=== PATIENT | male | born 1960 | race Caucasian/White ===

== ENCOUNTER → 2017-02-28 | Outpatient (CLI) | payer OTHER ==
[~2017-02-28] MED LIST: ALL180 PO; ASPEC81 PO; CNT PO; DOCU-94 PO; EZET10TA63 PO; HYZ/10015 PO; SIMV40TA2 PO
[2017-02-28 10:39] LABS: BASO % 0.4 %; BASO ABS # 0.02 K/uL (0-0.2); COMPLETE YES; EOS % 2.1 %; HEMATOCRIT 44.6 % (42-52); IG% 0.2 %; LYMPH % 28.3 %; LYMPH ABS # 1.51 K/uL (1.2-3.4); MEAN CELL VOLUME 89.7 fL (80-100); MEAN CORPUSCULAR HEMOGLOBIN 31.8 pg (25-34); MEAN CORPUSCULAR HGB CONC 35.4 g/dl (32-36); MEAN PLATELET VOLUME 9.5 fL (7.4-10.4); MONO % 6.2 %; NEUT % 62.8 %; PLATELET COUNT 235 K/uL (130-400); RED BLOOD COUNT 4.97 M/uL (4.7-6.1); WHITE BLOOD COUNT 5.34 K/uL (4.8-10.8)
[2017-02-28 10:59] LABS: ESTIMATED AVERAGE GLUCOSE 108 mg/dl; HA1C FLAG Normal (Normal)
[2017-02-28 11:11] LABS: CALCIUM 9.7 mg/dl (8.5-10.1)
[2017-02-28 11:19] LABS: ALT/SGPT 60 U/L (12-78); AST/SGOT 24 U/L (15-37); BLOOD UREA NITROGEN 23 mg/dl (7-18); BUN/CREATININE RATIO 24.6 (10-20); CARBON DIOXIDE 24 mmol/L (21-32); CHLORIDE 106 mmol/L (98-107); CHOLESTEROL 235 mg/dl (0-200); CHOLESTEROL/HDL RATIO 3.5; CREATININE 0.93 mg/dl (0.60-1.40); GLUCOSE 110 mg/dl (70-99); HDL CHOLESTEROL 67 mg/dl; LDL CHOLESTEROL CALCULATED 151 mg/dl; POTASSIUM 3.3 mmol/L (3.5-5.1); SODIUM 142 mmol/L (136-145); TRIGLYCERIDES 85 mg/dl (0-150); VERY LOW DENSITY LIPOPROT CALC 17 mg/dl
== END | disposition home or self-care (01) ==
LOC: C.LAB1850 09:45
PROVIDERS: ATTEND Internal Medicine
DX: E78.00 Pure hypercholesterolemia, unspecified (principal)

== ENCOUNTER 2023-07-14 08:07 | Observation (INO) ==
--- NOTE | 2023-07-13 12:18 | Anesthesiology Consultation ---
Date of Service July 13, 2023 Assessment & Plan (1) Encounter for pre-operative examination: Chart Review Chart Review: Acceptable Risk for Surgery (pending anesthesiologist review of unconfirmed EKG DOS ) and Patient NOT seen in Pre Admission Testing - Unconfirmed EKG will need reviewed by anesthesiologist DOS -Infectious Disease screening: Per PAT nursing assessment on 07/13/23. Intermittent cough x 3 days- occ productive. Occ post nasal drip- has chronic history allergic rhinitis this time of year. No fever/chills/SOB. No known infectious disease contacts in past 10 days. No recent travel outside the country. Discussed with Dr. Holland- will evaluate patient DOS. Preop Covid test not needed at this time History Surgery Operation Date: 07/14/23 09:40 Proposed Procedures p Open Umbilical Hernia Repair, Possible Mesh - Florencio Callejas MD, FACS Height/Weight Height: 5 ft 10 in Weight: 112.491 kg Allergies Allergy/AdvReac Type Severity Reaction Status Date / Time bee pollen Allergy Intermediate Hives Verified 07/13/23 13:33 No Known Drug Allergies Allergy Verified 07/13/23 13:33 Medications Home Medications Medication Instructions Recorded Confirmed Last Taken aspirin 81 mg tablet 81 mg PO HS 05/30/19 07/13/23 Unknown fexofenadine 180 mg tablet 180 mg PO QAM #90 tabs 05/30/19 07/13/23 Unknown multivit,Ca,min-iron 8 mg-folic 1 tab PO QAM 07/05/19 07/13/23 Unknown acid 200 mcg-lycopene 600 mcg tablet (Centrum Men) levothyroxine 25 mcg tablet 25 mcg PO QAM 07/13/23 07/13/23 Unknown losartan 100 1 tab PO QAM 07/13/23 07/13/23 Unknown mg-hydrochlorothiazide 25 mg tablet rosuvastatin 40 mg tablet (Crestor) 40 mg PO QPM 07/13/23 07/13/23 Unknown Past Medical History Medical History (Updated 07/13/23 @ 15:31 by Jaylene Burton PA-C) BPH (benign prostatic hyperplasia) Dyslipidemia High prostate specific antigen (PSA) History- follows with Dr. Valdovinos, - last seen 07/13/23- no issues, f/u one year PSA WNL 07/06/23 HTN (hypertension) Hypothyroidism Umbilical hernia Past Family History Family History Mother Breast cancer Hypertension Grandfather (Maternal) Myocardial infarction Grandfather (Paternal) Myocardial infarction Father Heart disease Myocardial infarction Cancer Hypertension Grandmother (Maternal) Ovarian cancer Grandmother (Paternal) Ovarian cancer Grandfather Heart disease Hypertension Other No family history of adverse response to anesthesia Denies family history of Prostate cancer Colonic polyp Past Surgical History Surgical History H/O lateral meniscus repair of left knee H/O wrist surgery ORIF right--hardware in place History of esophagogastroduodenoscopy (EGD) Social History Smoking Status: Never smoker Do You Dip or Chew Tobacco: Yes (advised by nursing on policy) Hx Alcohol Use: Yes Alcohol type: beer alcohol intake frequency: 0-2 drinks per day Hx Substance Use: No substance use type: does not use Lab Results Anesthesia Preop Results Results Anesthesia Widget: WBC 6.32 K/ul (4.8-10.8) 07/13/23 Hgb 17.0 g/dl (14.0-18.0) 07/13/23 Hct 47.7 % (42.0-52.0) 07/13/23 Plt 227 K/uL (130-400) 07/13/23 Na 136 mmol/L (136-145) 07/13/23 K 3.5 mmol/L (3.5-5.1) 07/13/23 Cl 102 mmol/L (98-107) 07/13/23 CO2 25 mmol/L (21-32) 07/13/23 BUN 23 mg/dl (6-23) 07/13/23 Creat 0.82 mg/dl (0.6-1.4) 07/13/23 Glucose Level 97 mg/dl (70-99(Fasting)) 07/13/23 Testing Electrocardiogram Date: 07/13/23 Findings: + NSR @ (81bpm) unconfirmed
[~2023-07-14 08:07] MED LIST changes: -ALL180 PO; -ASPEC81 PO; -CNT PO; -DOCU-94 PO; -EZET10TA63 PO; -HYZ/10015 PO; +LR 15ML/HR IV SCH; -SIMV40TA2 PO
[2023-07-14] MEDS ORDERED: ONDANSETRON INJ 2 MG/ML 2 ML VIAL IV PRN ×2 (09:22→11:19)
[2023-07-14] MEDS ORDERED: ATROPINE SULFATE 0.1 MG/ML 10ML SYR IV PRN (09:22)
[2023-07-14] MEDS ORDERED: ePHEDrine sulfate 50 MG/ML AMP IV PRN (09:22)
[2023-07-14] MEDS ORDERED: PROPOFOL IV EMULSION 10 MG/ML 20 ML VIAL IV ONE ×2 (09:40→10:18)
[2023-07-14] MEDS ORDERED: LIDOCAINE 2% 2 ML VIAL/AMP(20MG/ML) INFIL ONE (09:40)
[2023-07-14] MEDS ORDERED: MIDAZOLAM HCL 1 MG/ML 2ML VIAL ONE (09:49)
[2023-07-14] MEDS ORDERED: fentaNYL citrate PF 100 MCG/2 ML VIAL ONE ×3 (09:49→11:16)
--- NOTE | 2023-07-14 09:58 | History & Physical Bridge Note ---
Date of Service July 14, 2023 History & Physical Bridge Note I have examined the patient, reviewed the History & Physical and in the interval since the performance of the History & Physical I have noted the following changes of clinical significance: no changes noted pt marked all question answered
[2023-07-14] MEDS ORDERED: BUPIVACAINE/EPINEPHRINE 0.5% MPF 1:200,000 30 ML VIAL ONE (10:03)
[2023-07-14] MEDS ORDERED: ceFAZolin 330 MG/ML 1 GM VIAL ONE (10:15)
[2023-07-14] MEDS ORDERED: ONDANSETRON INJ 2 MG/ML 2 ML VIAL ONE (10:21)
[2023-07-14] MEDS ORDERED: DEXAMETHASONE SOD INJ 4 MG/ML VIAL ONE (10:21)
[2023-07-14] MEDS ORDERED: HYDROmorphone INJ 1 MG/ML SYRINGE ONE (10:27)
[2023-07-14] MEDS ORDERED: ceFAZolin 2000MG 2,000 MG/15 ML SYR IV ONE (11:08)
[2023-07-14] MEDS ORDERED: KETAMINE 50 MG/5 ML SYRINGE ONE (11:15)
[2023-07-14] MEDS ORDERED: MoRPHine SULFATE 4 MG/ML 1 ML CARP\\VIAL IV PRN (11:19)
[2023-07-14] MEDS ORDERED: ACETAMINOPHEN 325 MG TAB PO PRN (11:19)
[2023-07-14] MEDS ORDERED: MoRPHine SULFATE 2 MG/ML CARP IV PRN (11:19)
[2023-07-14] MEDS ORDERED: oxyCODONE/ACETAMINOPHEN 5mg/325mg TAB PO PRN ×2 (11:19)
[2023-07-14] MEDS ORDERED: SODIUM CHLORIDE 0.9% 1,000 ML IV SCH (11:30)
--- NOTE | 2023-07-14 11:54 | Post Operative Brief Note ---
Immediate Post Op Note v1 Date of Surgery July 14, 2023 Pre & Post Diagnosis Operation Date: 07/14/23 09:40 Pre-Op Diagnosis: Umbilical Hernia Post-Op Diagnosis: Umbilical Hernia I identified the patient and participated in the time-out.: Yes Procedure Operation Date: 07/14/23 09:40 Actual Procedures p Open Umbilical Hernia Repair, Mesh(Not Applicable) - Florencio Callejas MD, FACS Surgeon Florencio Callejas MD, FACS Package Designer o Estimated Blood Loss 15 Findings Consistent with Post-Op Diagnosis
[2023-07-14] MEDS: fentaNYL citrate PF 100 MCG/2 ML VIAL IV PRN ×4 (13:19→13:52)
--- NOTE | 2023-07-14 13:31 | Operative Report ---
PG Post Operative Report Pre & Post Diagnosis Operation Date: 07/14/23 09:40 Pre-Op Diagnosis: Umbilical Hernia Post-Op Diagnosis: Umbilical Hernia I identified the patient and participated in the time-out.: Yes Procedure Operation Date: 07/14/23 09:40 Actual Procedures p Open Umbilical Hernia Repair of multifenestration encarcerated umbilical hernia with SurgiMesh, Total defect 4cm ,Resection of encarcerated tissue(Not Applicable) - Florencio Callejas MD, FACS The patient was brought into the operating theater general LMA anesthesia the abdomen was prepped with scrub solution properly draped a timeout was had patient identified systemic antibiotics on board local anesthetic was used to infiltrate 4 points around the umbilical area the patient had a very thinned out skin overlying the incarcerated tissue and we told him I had a time most likely you would lose the umbilical stalk for an incision was made linearly or elliptically around the umbilical crater the subcutaneous tissue that we are able to dissect out the subcutaneous tissue from the incarcerated tissue the incision itself is approximately 8 cm long once we developed plane of dissection in the lateral aspect we were able to dissect out the abdominal wall from the incarcerated tissue circumferentially marking the edge of the defect with interrupted 3-0 silk at this point were able then to enter the hernial sac and identified that the patient had incarcerated fatty tissue omental in nature and the defect itself that we can measure was about 4 cm we resected the incarce rated tissue with the umbilical crater then closed the defect with a running 2-0 chromic suture we then dissected out the hernial sac from surrounding tissue and identified in the left side that there was another weakness and another fenestration separate from what we had seen the separate opening was freed from surrounding tissue and this was approximately 3 cm in size therefore we united to 2 openings making approximately 7 cm hernial defect at this point we brought in a surgical mesh 10 cm and were able to place it preperitoneally suspending it to the surrounding fascia with interrupted 2-0 Prolene once this had been performed we were able then to transversely close the fascia on top of the mesh with 0 PDS interrupted sutures subcutaneous tissue was then brought together on top of the abdominal wall fascia with interrupted 2-0 Vicryl and running 2-0 Vicryl josseline for skin edges dressing was applied procedure was tolerated well by the patient estimate blood loss 15 cc Addendum spoke with his sister Dianelys and awaiting Surgeon Florencio Callejas MD, FACS Turnaround Planner o Estimated Blood Loss 15 Findings Consistent with Post-Op Diagnosis Multi fenestrated umbilical hernia Specimens Hernial sac and contents and skin Complications None Indications This patient I had seen approximately 7 years ago at that time he clinically had about a 1 cm opening in umbilical crater I recommended repair since he had incarcerated tissue the patient did not follow-up on that recently has signifi cant pain and discomfort we saw him back in the office and the fact preoperatively what I can feel was a least 2-1/2 3 cm not able to reduce completely the contents Description of Procedure merda I attest to the content of the Intraoperative Record and any orders documented therein. Any exceptions are noted below.
--- NOTE | 2023-07-14 14:17 | Anesthesiology Progress Note ---
Date of Service July 14, 2023 Anesthesia Post Procedure Vital Signs Vital Signs: Temp Pulse Pulse Resp BP Pulse Ox O2 Del Method 07/14/23 13:45 101 H 19 148/95 H 92 Nasal Cannula 07/14/23 13:35 92 H 20 137/96 92 Nasal Cannula 07/14/23 13:25 94 H 21 144/102 H 94 Nasal Cannula 07/14/23 13:15 94 H 15 143/103 H 94 Nasal Cannula 07/14/23 13:05 99 H 19 136/90 93 Nasal Cannula 07/14/23 12:55 96 H 15 149/95 H 92 Nasal Cannula 07/14/23 12:45 100 H 16 131/92 93 Non-rebreather 07/14/23 12:35 99 H 23 154/94 H 99 Non-rebreather 07/14/23 12:25 86 16 117/84 91 Non-rebreather 07/14/23 12:15 84 17 124/82 92 Non-rebreather 07/14/23 12:07 36.4 C L 86 15 120/85 93 Non-rebreather 07/14/23 08:42 37 C 94 H 20 140/91 94 Room Air O2 Flow Rate 07/14/23 13:45 4 07/14/23 13:35 4 07/14/23 13:25 4 07/14/23 13:15 4 07/14/23 13:05 3 07/14/23 12:55 3 07/14/23 12:45 5 07/14/23 12:35 15 07/14/23 12:25 15 07/14/23 12:15 15 07/14/23 12:07 15 07/14/23 08:42 Pain Intensity Abdomen: Pain Intensity: 6 Transfer of Care Handoff Completed per policy Notes Mental Status: alert / awake / arousable Patient Amnestic to Procedure: Yes Nausea / Vomiting: adequately controlled Pain: adequately controlled Airway Patency, RR, SpO2: stable & adequate BP & HR: stable & adequate Hydration State: stable & adequate Anesthetic Complications: no major complications apparent and Pt Satisfied with anesthetic care
[2023-07-14] MEDS ORDERED: ROSUVASTATIN CALCIUM 20 MG TAB PO SCH (21:00)
[2023-07-15] MEDS ORDERED: LEVOTHYROXINE SODIUM 25 MCG TABLET PO SCH (06:30)
[2023-07-15] MEDS ORDERED: COUGH DROP (SUGAR FREE) LOZ 24 LOZ/1 BOX BUCCAL PRN (07:33)
[2023-07-15] MEDS ORDERED: COUGH DROP (SUGAR FREE) LOZ 24 LOZ/1 BOX BUCCAL ONE (07:42)
[2023-07-15] MEDS ORDERED: ACETAMINOPHEN 500 MG TAB PO PRN (08:25)
--- NOTE | 2023-07-15 08:28 | XRay Report ---
XR chest 1V portable CLINICAL HISTORY: Postoperative cough. COMPARISON STUDY: Chest CT June 30, 2011. Chest radiograph October 29, 2021. FINDINGS: Lung volumes are normal. No consolidation is identified. Linear bibasilar densities favor a telectasis. There is no pneumothorax or pleural effusion. Cardiac size is normal. Mediastinal contour s are normal. There is no evidence for pulmonary edema. IMPRESSION: 1. No acute cardiopulmonary findings. 2. Linear bibasilar densities suggestive of atelectasis. ACT 112: Negative or not required by law. Electronically signed by: Luke Ramírez M.D. 07/15/2023 8:27 AM
[2023-07-15 08:38] LABS: Basophils # (auto) 0.03 K/uL (0.00-0.20); Basophils % (auto) 0.3 %; Eosinophils % (auto) 2.3 %; Hematocrit (blood only) 43.8 % (42.0-52.0); Hemoglobin 15.6 g/dl (14.0-18.0); Immature Granulocytes # (auto) 0.03 K/uL (0.01-0.20); Immature Granulocytes % (auto) 0.3 %; Lymphocytes # (auto) 2.16 K/uL (1.20-3.40); Lymphocytes % (auto) 25.1 %; Mean Corpuscular Hemoglobin 31.9 pg (25.0-34.0); Mean Corpuscular Hgb Conc 35.6 g/dL (32.0-36.0); Mean Corpuscular Volume 89.6 fL (80.0-100.0); Mean Platelet Volume 9.3 fL (9.4-12.4); Monocytes # (auto) 0.84 K/uL (0.11-0.59); Monocytes % (auto) 9.8 %; Neutrophils # (auto) 5.34 K/uL (1.40-6.50); Neutrophils % (auto) 62.2 %; Platelet Count 230 K/uL (130-400); RDW Coefficient of Variation 11.8 % (11.5-14.5); RDW Standard Deviation 38.4 fL (36.4-46.3); Red Blood Count 4.89 M/uL (4.70-6.10)
--- NOTE | 2023-07-15 08:47 | Surgery Progress Note ---
Date of Service July 15, 2023 Assessment & Plan (1) Umbilical hernia: Plan: POD 1 umbilical hernia repair admitted over night for pain control C/o coughing up yellow tinged mucous , still on 2L NC. Removed for 5 minutes maintained sats 92-94%, Taught how to use incentive spirometer , encouraged use CXR ordered since s/p anesthesia , read negative this AM , mucous production likely 2/2 allergies. Ordered home Adeline. Denies N/V , Flatus Will continue to monitor Admission and Anticipated Discharge Date Admission Date: July 14, 2023 Supervising Physician Co-Signing Physician Notes Patient is first day postop open repair multi fenestrated repair umbilical hernia with surgery mesh placement As per Nessa RENEE the patient really had not taken anything for pain since he stated it makes him to go bonkers He is alert coherent with some abdominal discomfort tolerated breakfast without any issues The abdomen tender around the periumbilical area the dressing was removed the incision is intact some ecchymosis around the area as expected The chest x-ray was reviewed which shows some atelectasis we encouraged the patient to increase incentive spirometry Lab from this morning noted The operative report was discussed in detail with patient including the perioperative care as far as activity and lifting and anticipated recovery time Discussed with the patient also that depending how he does today if later on the day he feels like he can tolerate his pain medicine can be discharged otherwise we may keep him another day Dr. Candelario Knight will be covering the weekend All question answered Subjective Patient sitting up in bed Has complaint of coughing up yellow tinged mucous Wearing 02 at 2 L via NC reports not feeling SOB Has not used his incentive spirometer Has Hx of allergies, has not been taking his allergy medication Feeling like he has post nasal drip Abdomen painful at 6/10 taking pain medication does not like the narcotics reports it makes him "tearful" Review of Systems Constitutional: no fever, no chills and no sweats Respiratory: + cough and + sputum production (yellow tinged ); no dyspnea Cardiovascular: no chest pain Gastrointestinal: + abdominal pain; no nausea and no vomiting Genitourinary: no problem reported Physical Exam Physical Exam: alert oriented Constitutional: cooperative and comfortable; no acute distress Respiratory: normal respiratory effort and able to speak in complete sentences; no respiratory distress Cardiovascular: Rate/Rhythm: regular rate Gastrointestinal (Abdomen): Inspection/Auscultation: + abdominal surgical incision (umbilical area ecchymosis ) Percussion/Palpation: + abdomen tender and abdomen soft Results & Data Vital Signs (Past 12 Hours) Vital Signs Temp Pulse Pulse Resp BP Pulse Ox Pulse Ox 07/15/23 06:56 99.1 F 79 18 134/87 96 07/15/23 02:48 98.6 F 83 18 134/86 94 07/14/23 21:14 07/14/23 21:14 94 07/14/23 23:00 99.0 F 86 18 123/78 94 07/14/23 21:51 99.1 F 84 18 134/83 94 O2 Del Method O2 Del Method O2 Flow Rate O2 Flow Rate 07/15/23 06:56 Nasal Cannula 2 07/15/23 02:48 Nasal Cannula 2 07/14/23 21:14 Nasal Cannula 2 07/14/23 21:14 Nasal Cannula 2 07/14/23 23:00 Nasal Cannula 2 07/14/23 21:51 Nasal Cannula 2 PG Care Time/CCT Total # of Minutes Spent Total Time Spent with Patient: Total time spent is greater than 50% in coordination of care (as documented) at patient's floor/unit and/or counseling patient: Coding Level of Care Code 39568 Post Operative Follow-Up Diagnoses Umbilical hernia K42.9
[2023-07-15 08:57] LABS: BUN Creatinine Ratio 33.7 (10-20); Calcium 9.4 mg/dl (8.6-10.3); Est GFR (African American) 110.8 ml/min; Est GFR (Non-African American) 95.6 ml/min; Potassium 3.7 mmol/L (3.5-5.1)
[2023-07-15] MEDS ORDERED: FEXOFENADINE HCL 180 MG TAB PO SCH (09:00)
[2023-07-15] MEDS ORDERED: LOSARTAN/HCTZ 50/12.5MG TAB PO SCH (09:00)
--- NOTE | 2023-07-15 19:58 | Discharge Summary ---
Date of Service July 15, 2023 Principal Diagnosis Umbilical hernia repair Discharge Exam alert oriented Constitutional cooperative and comfortable; no acute distress Respiratory normal respiratory effort and able to speak in complete sentences; no respiratory distress Cardiovascular Rate/Rhythm: regular rate Gastrointestinal (Abdomen) Inspection/Auscultation: + abdominal surgical incision (umbilical area ecchymosis ) Percussion/Palpation: + abdomen tender and abdomen soft Discharge Data Allergies Allergy/AdvReac Type Severity Reaction Status Date / Time bee pollen Allergy Intermediate Hives Verified 07/19/23 14:31 No Known Drug Allergies Allergy Verified 07/19/23 14:31 Procedures Performed Operation Date: 07/14/23 09:40 Actual Procedures p Open Umbilical Hernia Repair of multifenestration encarcerated umbilical hernia with SurgiMesh, Total defect 7cm ,Resection of encarcerated tissue(Not Applicable) - Florencio Callejas MD, [facility] Hospital Course (1) Umbilical hernia: You under went an elective Umbilica hernia repair 07/14/[address] Callejas. You were admitted over night for pain control. On POD1 you admitted to not taking pain medication over night and were having pain in the morning. You also had a complaint of coughing up yellow tinged mucous. You were wearing 02 @ 2L/min via NC which was removed for 5 minutes and you maintained o2 sats between 92-94%. A chest xray was obtained which showed mild atelectasis you were taught how to use incentive spirometer , encouraged to continue this at home. You reported a history of allergies and had not taken your Adeline. Mucous production likely 2/2 allergies, your Adeline was ordered. You denied N/V , and were tolerating a diet. You took the narcotic oral pain medication and your pain was tolerable. You were discharged in the afternoon on 07/15/23 and reported no longer coughing up mucous since taking your Adeline, you verbalized readiness to go home, while your sister was visiting. Discharge instructions were given and you verbalized understanding, and are to follow up in the office with Dr. Callejas next week. Total Time Total Time Spent Total Time Spent (In Minutes): 30 Discharge Plan Discharge Items Patient Disposition: Home - Self-Care Reason For Visit: POST OPERATIVE UMBILICAL HERNIA Discharge Diagnosis: Umbilical hernia repair Activity: As commented below Lifting: No more than 10 pounds Bathing Comment: you can shower 07/15/23 no baths or pools for 2 weeks Exercise/Sports: Wait until after follow-up appointment Non-emergency contact: Surgeon Call non-emergency contact if: you have any medication questions, your symptoms worsen, your pain is unusual for you, your temperature is above 101.5, your wound has increased redness, your wound has increased drainage and your wound pain has increased Follow-up/Referrals: Oracio Nugent MD [Primary Care Provider] - Florencio Callejas MD, FACS [Surgeon] - 07/19/23 4:00 pm (call office for follow up in 1 week 07/19/23 4:[address] Callejas) Diet: Regular Addtl Attending Provider Instructions: You will have small white bandages on that are over your incision. You may shower with these on. They will tend to fall off on their own in a 7-10 days. Pending Studies at Discharge: No Stand-Alone Forms: [facility] Medications and DC Order Prescriptions: Continued aspirin 81 mg tablet 81 mg PO HS fexofenadine 180 mg tablet 180 mg PO QAM Qty: 90 Centrum Men 8 mg iron- 200 mcg-600 mcg tablet 1 tab PO QAM levothyroxine 25 mcg tablet 25 mcg PO QAM losartan-hydrochlorothiazide 100-25 mg tablet 1 tab PO QAM rosuvastatin [Crestor] 40 mg tablet 40 mg PO QPM No Action albuterol sulfate 90 mcg/actuation HFA aerosol inhaler 2 puff inhalation QID PRN (Reason: shortness of breath or wheezing) Qty: 8.5 0RF Discharge Orders: Discharge Order (Routine); Ordered 07/15/23 Ordered By: Nessa Barrera/Other Patient Handouts: What Is a Hernia? Admission Data Admit Date/Time: 07/14/23 13:48 Attending Provider: Florencio Callejas Admit Provider: Florencio Callejas Primary Care Provider: Oracio Nugent Other Interventions: Discharge Summary Assessment (RN) Last Done: 07/15/23 15:51 Coding Level of Care Code 12516 IN/OBS DISCH 30 MIN/LESS Diagnoses Umbilical hernia K42.9
== END 2023-07-15 16:40 | disposition home or self-care (01) ==
LOC: ASU 08:07 → 3E 13:48 → INTOOBSV 13:48